=== PATIENT | male | born 1990 | race Caucasian/White ===

== ENCOUNTER 2016-08-06 20:26 | Emergency (ER) | payer MEDICAID ==
[2016-08-06 21:23] VITALS: BP 138/84
[2016-08-06] MEDS ORDERED: Tetan/Diph/Pertus SYR(Tdap)* 0.5 ML SYR(BOOSTRIX) use SYR IM ONE (21:26)
[2016-08-06] MEDS ORDERED: Acetaminophen TAB* 325 MG PO ONE (21:26)
[2016-08-06] MEDS ORDERED: Amoxicillin/Clavulanate TAB* 875 MG PO ONE (21:55)
--- NOTE | 2016-08-06 21:55 | ED ---
Upper Extremity Pain - HPI Summary HPI Summary: Patient was working in a barn when he stumbled and his right wrist hit a marci nail. He applied direct pressure and the bleeding was controlled. His tetanus is not up to date and he has not taken anything for pain. He denies N/T, or inability to move the digit. 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 Mechanism Of Injury: Blunt Trauma Onset/Duration: Started Hours Ago Timing: Constant Severity Initially: Mild Severity Currently: Mild Pain Location: Wrist Character: Dull, Aching Aggravating Factor(s): Nothing Alleviating Factor(s): Nothing Associated Signs & Symptoms: Positive: Negative Related History: Dominant Hand Right - Allergies/Home Medications Allergies/Adverse Reactions: Allergies Allergy/AdvReac Type Severity Reaction Status Date / Time Sulfamethoxazole Allergy Intermediate Hives Verified 08/06/16 20:35 w/Trimethoprim [From Bactrim] bee stings Allergy Unknown Unknown Uncoded 08/06/16 20:35 Reaction Details PMH/Surg Hx/FS Hx/Imm Hx Endocrine/Hematology History: Denies: Hx Diabetes, Hx Thyroid Disease Cardiovascular History: Denies: Hx Hypertension Respiratory History: Denies: Hx Asthma, Hx Chronic Obstructive Pulmonary Disease (COPD) GI History: Reports: Hx Gastroesophageal Reflux Disease Denies: Hx Ulcer - Immunization History Date of Tetanus Vaccine: today Infectious Disease History: No Infectious Disease History: Denies: Hx Hepatitis, Hx Human Immunodeficiency Virus (HIV), Traveled Outside the [place] in Last 30 Days - Family History Known Family History: Positive: Cardiac Disease, Hypertension, Other - brother with mental health disorders - Social History Occupation: Employed Full-time Lives: With Family Alcohol Use: None Substance Use Type: Reports: None, Prescribed Smoking Status (MU): Never Smoked Tobacco Review of Systems Positive: Other - puncture wound to radial aspect of right wrist Negative: Weakness, Paresthesia, Numbness All Other Systems Reviewed And Are Negative: Yes Physical Exam Triage Information Reviewed: Yes Vital Signs On Initial Exam: Initial Vitals Temp Pulse Resp BP Pulse Ox 98.4 F 90 14 153/92 100 08/06/16 20:28 08/06/16 20:28 08/06/16 20:28 08/06/16 20:28 08/06/16 20:28 Vital Signs Reviewed: Yes Appearance: Positive: Well-Appearing, No Pain Distress, Well-Nourished Skin: Positive: Warm, Skin Color Reflects Adequate Perfusion, Dry, Tender - puncture wound to radial aspect of right wrist, Soft Head/Face: Positive: Normal Head/Face Inspection Eyes: Positive: EOMI, SHAYAN, Conjunctiva Clear ENT: Positive: Hearing grossly normal Respiratory/Lung Sounds: Positive: Breath Sounds Present Cardiovascular: Positive: RRR Musculoskeletal: Positive: Strength/ROM Intact, Pain @ - TTP right radial aspect of right wrist. Negative: Edema Left, Edema Right Neurological: Positive: Sensory/Motor Intact, Alert, Oriented to Person Place, Time, NV Bundle Intact Distally Psychiatric: Positive: Affect/Mood Appropriate AVPU Assessment: Alert Diagnostics - Vital Signs Vital Signs Temp Pulse Resp BP Pulse Ox 08/06/16 21:22 98.9 F 82 16 138/84 97 08/06/16 20:28 98.4 F 90 14 153/92 100 - Laboratory Lab Statement: Any lab studies that have been ordered have been reviewed, and results considered in the medical decision making process. - Radiology No standard instances Xray Interpretation: No Acute Changes Radiology Interpretation Completed By: Radiologist Course/Dx - Diagnoses Differential Diagnosis/HQI/PQRI: Positive: Arthritis, Bursitis, Contusion, Fracture (Closed), Hematoma, Laceration, Strain, Sprain Provider Diagnoses: Puncture wound Discharge - Discharge Plan Condition: Stable Disposition: HOME Prescriptions: Amoxicillin/Clavulanate TAB* [Augmentin TAB 875*] 875 mg PO BID #19 tab Patient Education Materials: Puncture Wound (ED), Tetanus (ED) Referrals: Yung Schmidt MD [Primary Care Provider] - Additional Instructions: Take the antibiotic prescribed until it is completely gone. Use Tylenol for pain and elevate your wrist above your heart to decrease swelling and pain. It is okay to use your hand for light activities. Keep your dressing clean, dry and in place for the next 48 hours. After 48 hours, you may remove dressing and shower. Pat dry and cover with a clean dry bandaid as needed. Do not soak the wound in any body of water until it is completely healed. Return to the emergency department if symptoms worsen.
--- NOTE | 2016-08-06 22:31 | RAD ---
HISTORY: Penetrating trauma rule out foreign body, right wrist COMPARISONS: None VIEWS: 3, Frontal, lateral, and oblique views of the right wrist FINDINGS: BONE DENSITY: Normal. BONES: There is no displaced fracture. JOINTS: There is no arthropathy. ALIGNMENT: There is no dislocation. SOFT TISSUES: There is soft tissue swelling. OTHER FINDINGS: None. IMPRESSION: NO ACUTE OSSEOUS INJURY. NO RADIOPAQUE FOREIGN BODY. IF SYMPTOMS PERSIST, RECOMMEND REPEAT IMAGING.
== END 2016-08-06 22:56 | disposition home or self-care (01) ==
LOC: ED 20:26
DX: S61.541A Puncture wound with foreign body of right wrist, initial encounter (principal); W45.0XXA Nail entering through skin, initial encounter; Y93.9 Activity, unspecified; Y92.9 Unspecified place or not applicable
CPT/HCPCS: 90471; 90715; 99282; A9270-GY

== ENCOUNTER 2017-11-25 21:16 | Emergency (ER) | payer MEDICAID ==
[2017-11-25] MEDS ORDERED: Tetan/Diph/Pertus SYR(Tdap)* 0.5 ML SYR(BOOSTRIX) use SYR IM ONE (21:26)
--- NOTE | 2017-11-25 21:37 | ED ---
Lower Extremity - HPI Summary HPI Summary: Complains of stepping on a nail last night while wearing tennis shoes with persistent pain since. Patient states he believes he pulled the whole nail out. Tetanus status unknown. Denies fever, N/V, redness, swelling, purulent discharge. Medical history is none. 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 Mechanism Of Injury: Penetrating Trauma Onset of Pain: Immediate, Days Onset/Duration: Days Severity Initially: Moderate Severity Currently: Moderate Pain Intensity: 7 Pain Scale Used: 0-10 Numeric Timing: Constant Location: Is Discrete @ Character Of Pain: Sharp, Aching, Throbbing Associated Signs And Symptoms: Positive: Negative Aggravating Factor(s): Standing, Weight Bearing Alleviating Factor(s): Rest Able to Bear Weight: Yes - Allergies/Home Medications Allergies/Adverse Reactions: Allergies Allergy/AdvReac Type Severity Reaction Status Date / Time bee venom protein (honey bee) AdvReac Intermediate Hives Verified 11/25/17 21:21 sulfamethoxazole AdvReac Intermediate Hives Verified 11/25/17 21:21 [From Bactrim] trimethoprim [From Bactrim] AdvReac Intermediate Hives Verified 11/25/17 21:21 PMH/Surg Hx/FS Hx/Imm Hx Endocrine/Hematology History: Denies: Hx Anticoagulant Therapy, Hx Diabetes, Hx Thyroid Disease Cardiovascular History: Denies: Hx Cardiac Arrest, Hx Hypertension Respiratory History: Denies: Hx Asthma, Hx Chronic Obstructive Pulmonary Disease (COPD) GI History: Reports: Hx Gastroesophageal Reflux Disease Denies: Hx Ulcer - Immunization History Date of Tetanus Vaccine: today Infectious Disease History: No Infectious Disease History: Denies: Hx Hepatitis, Hx Human Immunodeficiency Virus (HIV), Traveled Outside the [place] in Last 30 Days - Family History Known Family History: Positive: Cardiac Disease, Hypertension, Other - brother with mental health disorders - Social History Alcohol Use: None Substance Use Type: Reports: None, Prescribed Smoking Status (MU): Never Smoked Tobacco Review of Systems Constitutional: Negative Eyes: Negative ENT: Negative Cardiovascular: Negative Respiratory: Negative Gastrointestinal: Negative Genitourinary: Negative Musculoskeletal: Negative Skin: Other Neurological: Negative Psychological: Normal All Other Systems Reviewed And Are Negative: Yes Physical Exam - Summary Physical Exam Summary: No erythema, swelling, deformity, ecchymosis, purulent drainage to right foot. Indication of nail penetration under ball of right foot. PMS intact distally. Vital Signs On Initial Exam: Initial Vitals Temp Pulse Resp BP Pulse Ox 99.2 F 102 18 151/85 98 11/25/17 21:17 11/25/17 21:17 11/25/17 21:17 11/25/17 21:17 11/25/17 21:17 Diagnostics - Vital Signs Vital Signs Temp Pulse Resp BP Pulse Ox 11/25/17 21:17 99.2 F 102 18 151/85 98 - Laboratory Lab Statement: Any lab studies that have been ordered have been reviewed, and results considered in the medical decision making process. - Radiology foot Xray Interpretation: No Acute Changes - No evidence of foreign body Radiology Interpretation Completed By: ED Physician Lower Extremity Course/Dx - Course Course Of Treatment: Complains of stepping on a nail last night while wearing tennis shoes with persistent pain since. Patient states he believes he pulled the whole nail out. Tetanus status unknown. Denies fever, N/V, redness, swelling, purulent discharge. Medical history is none. Physical exam:No erythema, swelling, deformity, ecchymosis, purulent drainage to right foot. Indication of nail penetration under ball of right foot. PMS intact distally. Nail penetrated foot after passing through tennis shoe. Concern for pseudomonas infection. We'll start patient on Levaquin here in the ED, Rx for same. - Diagnoses Provider Diagnoses: Foreign body (FB) in soft tissue Discharge - Sign-Out/Discharge Documenting (check all that apply): Patient Departure - Discharge Plan Condition: Stable Disposition: HOME Prescriptions: Levofloxacin TAB* [Levaquin TAB*] 750 mg PO DAILY 7 Days #7 tab Patient Education Materials: Soft Tissue Foreign Body (ED) Referrals: Yung Schmidt MD [Primary Care Provider] - Additional Instructions: Take antibiotics as directed. Return to the ED for any new or worsening symptoms - Billing Disposition and Condition Condition: STABLE Disposition: Home
[2017-11-25] MEDS ORDERED: Levofloxacin TAB* 250 MG PO ONE (21:38)
[2017-11-25] MEDS ORDERED: Acetaminophen TAB* 325 MG PO ONE (21:49)
[2017-11-25 22:20] VITALS: BP 147/92
--- NOTE | 2017-11-26 07:29 | RAD ---
INDICATION: Evaluate for foreign body COMPARISON: None TECHNIQUE: AP, lateral, and oblique views were obtained. FINDINGS: The bony structures, joint spaces, and soft tissues are normal for age. IMPRESSION: NO FRACTURE OR FOREIGN BODY. R0
== END 2017-11-25 22:19 | disposition home or self-care (01) ==
LOC: ED 21:16
DX: S91.331A Puncture wound without foreign body, right foot, initial encounter (principal); W45.0XXA Nail entering through skin, initial encounter; Y93.9 Activity, unspecified; Y92.9 Unspecified place or not applicable; Z23 Encounter for immunization; Z88.2 Allergy status to sulfonamides; Z91.030 Bee allergy status; Z82.49 Family history of ischemic heart disease and other diseases of the circulatory system
CPT/HCPCS: 90471; 90715; 99282; A9270-GY

== ENCOUNTER 2018-08-24 16:40 | Emergency (ER) | payer MEDICAID ==
[2018-08-24 16:50] VITALS: BP 155/92
--- NOTE | 2018-08-24 17:07 | UC ---
Respiratory Complaint HPI - HPI Summary HPI Summary: started coughing 5 days ago, last pm coughed so hard he saw blood in is feeling fatigued, no fever, tried no meds - History of Current Complaint Chief Complaint: UCRespiratory Stated Complaint: COUGH Time Seen by Provider: 08/24/18 16:47 Hx Obtained From: Patient Onset/Duration: Gradual Onset Timing: Intermittent Episodes Pain Intensity: 0 Character: Cough: Productive Aggravating Factors: Exertion Alleviating Factors: Nothing Associated Signs And Symptoms: Positive: Negative, Hemoptysis, Nasal Congestion. Negative: Fever, Chills - Allergies/Home Medications Allergies/Adverse Reactions: Allergies Allergy/AdvReac Type Severity Reaction Status Date / Time bee venom protein (honey bee) AdvReac Intermediate Hives Verified 11/25/17 21:21 sulfamethoxazole AdvReac Intermediate Hives Verified 11/25/17 21:21 [From Bactrim] trimethoprim [From Bactrim] AdvReac Intermediate Hives Verified 11/25/17 21:21 PMH/Surg Hx/FS Hx/Imm Hx Previously Healthy: Yes Psychological History: Anxiety Other History Of: Negative For: Anticoagulant Therapy - Surgical History Surgical History: None - Family History Known Family History: Positive: Cardiac Disease, Hypertension, Other - brother with mental health disorders - Social History Occupation: Employed Full-time Lives: With Family Alcohol Use: None Substance Use Type: None Smoking Status (MU): Never Smoked Tobacco - Immunization History Most Recent Influenza Vaccination: 2014 Most Recent Tetanus Shot: 169 Review of Systems All Other Systems Reviewed And Are Negative: Yes Constitutional: Positive: Fatigue Skin: Positive: Negative. Negative: Rash ENT: Positive: Negative, Sinus Congestion. Negative: Sore Throat, Ear Ache Respiratory: Positive: Cough. Negative: Shortness Of Breath Cardiovascular: Positive: Negative Musculoskeletal: Positive: Negative Neurological: Positive: Negative. Negative: Headache Psychological: Positive: Negative Is Patient Immunocompromised?: No Physical Exam Triage Information Reviewed: Yes Appearance: Well-Appearing, No Pain Distress, Well-Nourished Vital Signs: Initial Vital Signs Temp 98.7 F 08/24/18 16:44 Pulse 98 08/24/18 16:44 Resp 16 08/24/18 16:44 BP 155/92 08/24/18 16:44 Pulse Ox 97 08/24/18 16:44 Eyes: Positive: Conjunctiva Clear ENT: Positive: Pharynx normal, Nasal congestion, TMs normal. Negative: Nasal drainage Neck exam: Normal Neck: Positive: No Lymphadenopathy Respiratory Exam: Normal Respiratory: Positive: Lungs clear Cardiovascular Exam: Normal Cardiovascular: Positive: RRR Neurological: Positive: Alert Psychological Exam: Normal Skin Exam: Normal Skin: Negative: Rashes Diagnostics - Radiology No standard instances Radiology Interpretation Completed By: Radiologist - normal CXR Respiratory Course/Dx - Differential Dx/Diagnosis Differential Diagnosis/HQI/PQRI: Bronchitis, Lower Resp Infection, Sinusitis Provider Diagnosis: Bronchitis Discharge - Sign-Out/Discharge Documenting (check all that apply): Patient Departure All imaging exams completed and their final reports reviewed: No Studies - Discharge Plan Condition: Good Disposition: HOME Patient Education Materials: Acute Bronchitis (ED) Referrals: Yung Schmidt MD [Primary Care Provider] - 2 Days (to rehceck blood pressure) Additional Instructions: drink plenty of fluids use over the counter Robitussin cough syrup as directed - Billing Disposition and Condition Condition: GOOD Disposition: Home
== END 2018-08-24 18:02 | disposition home or self-care (01) ==
LOC: UCEAST 16:40
DX: J40 Bronchitis, not specified as acute or chronic (principal); R04.2 Hemoptysis; F41.9 Anxiety disorder, unspecified; Z88.2 Allergy status to sulfonamides; Z91.030 Bee allergy status
CPT/HCPCS: 71046; 99211; G0463

== ENCOUNTER 2018-09-03 19:02 | Emergency (ER) | payer MEDICAID ==
[2018-09-03 19:50] VITALS: BP 138/92
[2018-09-03] MEDS ORDERED: Albuterol HFA INHALER* 8 gm MDI INH ONE (20:48)
[2018-09-03] MEDS ORDERED: Benzonatate CAP* 100 MG PO ONE (20:48)
[2018-09-03] MEDS ORDERED: Azithromycin TAB* 250 MG PO ONE (20:48)
--- NOTE | 2018-09-03 20:55 | UC ---
Respiratory Complaint HPI - HPI Summary HPI Summary: 28-year-old male with developmental delay presents with father reporting persistent cough. Patient was seen here on 08/24/2018 for 4 day history of a nonproductive cough. Chest x-ray was negative at that visit. Patient was diagnosed with bronchitis and recommended symptomatic treatment. Father states that the cough has not improved and over the last several days has begun to worsen with the patient having a couple episodes of posttussive emesis after a coughing fit. Denies fever, chills, nasal congestion, sore throat, chest pain, shortness of breath, or wheezing. - History of Current Complaint Chief Complaint: UCRespiratory Stated Complaint: COUGH Time Seen by Provider: 09/03/18 20:21 Hx Obtained From: Patient, Family/[employer] Pain Intensity: 7 - Allergies/Home Medications Allergies/Adverse Reactions: Allergies Allergy/AdvReac Type Severity Reaction Status Date / Time bee venom protein (honey bee) AdvReac Intermediate Hives Verified 09/03/18 19:50 sulfamethoxazole AdvReac Intermediate Hives Verified 09/03/18 19:50 [From Bactrim] trimethoprim [From Bactrim] AdvReac Intermediate Hives Verified 09/03/18 19:50 PMH/Surg Hx/FS Hx/Imm Hx Previously Healthy: Yes - Denies significant PMH - Surgical History Surgical History: None - Family History Known Family History: Positive: Cardiac Disease, Hypertension, Other - brother with mental health disorders - Social History Occupation: Disabled Lives: With Family Alcohol Use: None Substance Use Type: None Smoking Status (MU): Never Smoked Tobacco - Immunization History Most Recent Influenza Vaccination: 2014 Most Recent Tetanus Shot: 169 Review of Systems All Other Systems Reviewed And Are Negative: Yes Constitutional: Negative: Fever, Chills Skin: Negative: Rash Eyes: Negative: Drainage, Eye Redness ENT: Negative: Sore Throat, Ear Ache, Nasal Discharge, Sinus Congestion, Sinus Pain/Tenderness Respiratory: Positive: Cough. Negative: Shortness Of Breath Cardiovascular: Negative: Palpitations, Chest Pain Gastrointestinal: Negative: Abdominal Pain, Vomiting, Diarrhea, Nausea Genitourinary: Positive: Negative Musculoskeletal: Positive: Negative Neurological: Positive: Negative Is Patient Immunocompromised?: No Physical Exam - Summary Physical Exam Summary: GENERAL APPEARANCE: Well developed, well nourished, alert and cooperative, and appears to be in no acute distress. EYES: Conjunctiva clear. No drainage. EARS: External auditory canals and tympanic membranes clear, hearing grossly intact. NOSE: No nasal discharge. THROAT: Pharynx normal. No tonsilar inflammation, swelling, exudate, or lesions. Uvula midline. Oral cavity normal. Teeth and gingiva in good general condition. NECK: Neck supple, non-tender without lymphadenopathy. CARDIAC: Normal S1 and S2. No S3, S4 or murmurs. Rhythm is regular. There is no peripheral edema, cyanosis or pallor. Extremities are warm and well perfused. Capillary refill is less than 2 seconds. Peripheral pulses intact. LUNGS: Clear to auscultation without rales, rhonchi, wheezing or diminished breath sounds. Cough was not observed. ABDOMEN: Positive bowel sounds. Soft, nondistended, nontender. No guarding or rebound. No masses or hepatosplenomegally. MUSKULOSKELETAL: ROM intact to all extremities. No joint erythema or tenderness. Normal muscular development. Normal gait. SKIN: Skin normal color, texture and turgor with no lesions or eruptions. Triage Information Reviewed: Yes Vital Signs: Initial Vital Signs Temp 98.8 F 09/03/18 19:46 Pulse 94 09/03/18 19:46 Resp 18 09/03/18 19:46 BP 138/92 09/03/18 19:46 Pulse Ox 98 09/03/18 19:46 Vital Signs Reviewed: Yes Respiratory Course/Dx - Course Course Of Treatment: 28-year-old male with developmental delay presents with father reporting persistent cough. Patient was seen here on 08/24/2018 for 4 day history of a nonproductive cough. Chest x-ray was negative at that visit. Patient was diagnosed with bronchitis and recommended symptomatic treatment. Father states that the cough has not improved and over the last several days has begun to worsen with the patient having a couple episodes of posttussive emesis after a coughing fit. Denies fever, chills, nasal congestion, sore throat, chest pain, shortness of breath, or wheezing. Afebrile. Mildly hypertensive otherwise vital signs stable. Exam was overall unremarkable and the cough was not observed however considering the duration and worsening of his symptoms I will treat him with a course of azithromycin. His first dose was given in the clinic. I also dispensed home and albuterol inhaler with spacer for him to use every 4-6 hours as needed for shortness of breath, wheezing, or coughing fits and provided him with some Tessalon Perles one capsule every 8 hours as needed for cough. He is to follow-up with his primary care provider in 3-5 days for recheck of symptoms. Anticipatory guidance and warning symptoms were reviewed with the father. Verbalizes understanding and agrees with plan of care. - Differential Dx/Diagnosis Differential Diagnosis/HQI/PQRI: Bronchitis, Lower Resp Infection Provider Diagnosis: Acute bronchitis Discharge - Sign-Out/Discharge Documenting (check all that apply): Patient Departure All imaging exams completed and their final reports reviewed: No Studies - Discharge Plan Condition: Stable Disposition: HOME Prescriptions: Azithromycin 250 mg PO DAILY #4 tablet Benzonatate CAP* [Tessalon 100 MG CAP*] 100 mg PO TID PRN #30 cap PRN Reason: Cough Patient Education Materials: Acute Bronchitis (ED) Referrals: Yung Schmidt MD [Primary Care Provider] - 3 Days Additional Instructions: Your history and exam are consistent with acute bronchitis. Considering the duration and worsening of symptoms we will treat you with an antibiotic. Take azithromycin 250 mg 1 tab daily for next 4 days. We gave you the first dose in the clinic. Get plenty of rest. Drink plenty of fluids. Run a cool mist humidifer in your room at night. Take over the counter acetaminophen (Tylenol) or ibuprofen (Advil, Motrin) according to directions as needed for pain or fever. Use albuterol inhaler 2 puffs every 4-6 hours as needed for shortness of breath , wheezing, or coughing fits. Take Tessalon Perles 1 cap every 8 hours as needed for cough. Follow up with your primary care provider in 3-5 days for recheck of symptoms. Seek immediate medical attention in the emergency room if you have fever greater than 100.5 F despite taking acetaminophen or ibuprofen, have chest pain , difficulty breathing, or have any worsening of symptoms. - Billing Disposition and Condition Condition: STABLE Disposition: Home
== END 2018-09-03 21:13 | disposition home or self-care (01) ==
LOC: UCEAST 19:02
DX: J20.9 Acute bronchitis, unspecified (principal); Z91.030 Bee allergy status; Z88.2 Allergy status to sulfonamides; Z88.1 Allergy status to other antibiotic agents
CPT/HCPCS: 99213; A9270-GY; G0463